=== PATIENT | male | born 1985 | race Caucasian/White ===

== ENCOUNTER 2024-10-18 10:31 | Emergency (ER) | payer BC ==
[~2024-10-18 10:31] MED LIST: Iopamidol 370 76% 100 ML VIAL ONE
[2024-10-18] MEDS ORDERED: Morphine 4 MG/ML VIAL ONE ×2 (11:46→13:43)
[2024-10-18] MEDS ORDERED: Ketorolac Tromethamine 30 MG (1 mL) VIAL ONE (11:46)
[2024-10-18] MEDS ORDERED: Acetaminophen 500 MG TAB ONE (11:46)
[2024-10-18] MEDS ORDERED: Ondansetron PF 4 MG/2 ML Vial ONE (11:46)
[2024-10-18 12:04] LABS: Anion Gap 15 mmol/L (10-20); BUN (Urea Nitrogen) 14 mg/dL (8.9-20.6); Calc. Creatinine Clearance 0 mL/min (70-130); Calcium 9.5 mg/dL (7.8-10.44); Carbon Dioxide 25 mmol/L (22-29); Chloride 103 mmol/L (98-107); Estimated GFR 96; Glucose 97 mg/dL (70-105); Potassium 4.5 mmol/L (3.5-5.1); Sodium 138 mmol/L (136-145)
[2024-10-18 12:07] LABS: Band 3 % (5-11); Hematocrit 46.1 % (42.0-52.0); Hemoglobin 14.6 g/dL (14.0-18.0); Hypochromia SLIGHT = 6-15 cells (100X) (0-5/hpf); Lymphocytes 23 % (21-51); MDiff Complete? YES; Mean Corpuscular HGB CONC 31.6 g/dL (32.0-36.0); Mean Corpuscular Hemoglobin 28.3 pg (27.0-31.0); Mean Corpuscular Volume 89.3 fl (78.0-98.0); Mean Platelet Volume 6.4 fL (7.4-10.4); Monocytes 15 % (0-10); Neutrophil 54 % (42-75); Platelet Adequacy Comment Appears Adequate; Platelet Count 354 10x3/uL (130-400); RBC Distribution Width 12.3 % (11.5-14.5); Red Blood Cell (RBC) Count 5.17 mill/uL (4.70-6.10); White Blood Cell (WBC) Count 11.2 10x3/uL (4.8-10.8)
[2024-10-18 12:38] LABS: Base Excess-Venous 1.6 mmol/L (-2.0 to 3.0); CO2 Tension (PvCO2) 48.9 mmHg (42.0-51.0); Hemoglobin - Calc 17.1 g/dL (14.0-18.0); Potassium 4.9 mmol/L (3.5-5.1); Sodium 139 mmol/L (138-145); vO2 Saturation-calc 94.8 % (60.0-85.0)
[2024-10-18 12:39] LABS: Calcium, Ionized 1.19 mmol/L (1.15-1.33); Chloride 104 mmol/L (98-107); T. Carbon Dioxide 29.5 mmol/L (22.0-28.0)
== END 2024-10-18 14:40 | disposition home or self-care (01) ==
LOC: MADERS 10:31
DX: S22.41XA Multiple fractures of ribs, right side, initial encounter for closed fracture (principal); V86.55XA Driver of 3- or 4- wheeled all-terrain vehicle (ATV) injured in nontraffic accident, initial encounter
CPT/HCPCS: 70450; 71260; 72125; 74177; 80048; 82330; 82803; 83605; 85014; 85025; 93005; 96374; 96375; 96376; J1885; J2272; J2405; Q9967